=== PATIENT | male | born 2000 | race Caucasian/White ===

== ENCOUNTER 2024-09-30 02:15 | Emergency (ER) | payer SELFPAY ==
[~2024-09-30] VITALS: Ht 188 cm; Wt 115.4 kg
[2024-09-30 02:26] VITALS: BP 123/62; TEMP 36.9; O2SAT 99
[2024-09-30 02:34] VITALS: PULSE 76; RESP 16; O2SAT 100
== END 2024-09-30 06:38 | disposition left against medical advice (07) ==
LOC: ER 02:15
DX: R07.89 Other chest pain (principal); Z53.21 Procedure and treatment not carried out due to patient leaving prior to being seen by health care provider
CPT/HCPCS: 71045; 93005